=== PATIENT | female | born 1985 | race Caucasian/White ===

== ENCOUNTER → 2025-08-08 10:30 | Outpatient (CLI) | payer BC, SELFPAY ==
[2025-08-08 11:27] LABS: Influenza A - CEPHEID Flu A NEGATIVE (NEGATIVE); Influenza B - CEPHEID Flu B NEGATIVE (NEGATIVE)
[2025-08-08 11:28] LABS: COVID-19 CEPHEID 4-PLEX PCR Negative (Negative)
== END ==
PROVIDERS: Visit Provider Chiropractor
DX: R05.9 Cough, unspecified (principal); J02.8 Acute pharyngitis due to other specified organisms; B97.89 Other viral agents as the cause of diseases classified elsewhere; R52 Pain, unspecified
CPT/HCPCS: 87637